=== PATIENT | male | born 1945 | race Caucasian/White ===

== ENCOUNTER 2021-04-16 07:14 | Outpatient (CLI) | payer MEDICARE, BC | END 2021-04-16 07:15 | disposition home or self-care (01) | LOC: CSHCT 07:14 | PROVIDERS: ATTEND Family Medicine | DX: D49.89 Neoplasm of unspecified behavior of other specified sites (principal); Z95.818 Presence of other cardiac implants and grafts | CPT/HCPCS: 71275; 82565 ==